=== PATIENT | female | born 1980 | race Caucasian/White ===

== ENCOUNTER 2018-09-19 11:49 | Emergency (ER) | payer BC ==
[~2018-09-19] VITALS: Ht 170.2 cm; Wt 85.3 kg
[2018-09-19 12:22] LABS: BASOPHILS % 0.2 % (0.0-1.0); EOSINOPHILS # (AUTO) 0.1 (0.0-0.4); EOSINOPHILS % 1.2 % (0.0-6.0); HEMATOCRIT 51.1 % (34.2-44.1); HEMOGLOBIN 17.2 g/dL (12.0-16.0); LYMPHOCYTES # (AUTO) 2.5 (1.0-3.2); LYMPHOCYTES % 26.8 % (18.0-39.1); MEAN CORPUSCULAR HEMOGLOBIN 29.5 pg (28-32); MEAN CORPUSCULAR HGB CONC 33.7 g/dL (31-35); MEAN CORPUSCULAR VOLUME 87.5 fL (81-99); MONOCYTES # (AUTO) 0.6 (0.2-0.8); MONOCYTES % 6.9 % (4.4-11.3); NEUTROPHILS % 64.5 % (38.7-80.0); PLATELET COUNT 252 x10e3/uL (140-360); RED BLOOD COUNT 5.84 x10e6/uL (3.6-5.1); RED CELL DISTRIBUTION WIDTH 12.5 % (11.7-14.4)
[2018-09-19 12:30] LABS: PARTIAL THROMBOPLASTIN TIME 32.1 seconds (23.8-35.5); PROTHROMBIN TIME 13.7 seconds (11.9-14.5)
[2018-09-19 12:43] LABS: ALANINE AMINOTRANSFERASE 20 IU/L (0-55); ALBUMIN 3.6 g/dL (3.5-5.0); ALBUMIN/GLOBULIN RATIO 0.9 (0.8-2.0); ALKALINE PHOSPHATASE 80 IU/L (40-150); ANION GAP 10.9 mmol/L (8-16); BLOOD UREA NITROGEN 13 mg/dL (7-26); BUN/CREATININE RATIO 18 (6-25); CALCIUM 9.2 mg/dL (8.4-10.2); CARBON DIOXIDE 25 mmol/L (22-29); CHLORIDE 107 mmol/L (98-107); CREATININE, SERUM 0.73 mg/dL (0.57-1.11); EST GLOMERULAR FILTRATION RATE > 60 ML/MIN (60-); GLUCOSE 103 mg/dL (74-118); POTASSIUM 3.9 mmol/L (3.5-5.1); SODIUM 139 mmol/L (136-145)
--- NOTE | 2018-09-19 13:08 | NUR ---
PT TO ROOM 6 FROM /S.
[2018-09-19 13:09] LABS: PREGNANCY TEST, URINE NEGATIVE (NEGATIVE)
[2018-09-19 13:17] LABS: BACTERIA,URINE MODERATE /HPF; CLARITY,URINE SL CLOUDY (CLEAR); COLOR,URINE YELLOW (YELLOW); EPITHELIAL CELLS,URINE MODERATE /LPF
[2018-09-19] MEDS ORDERED: ONDANSETRON HCL INJ 2MG/ML 2ML 2 MG/ML VIAL IV STA (13:19)
[2018-09-19] MEDS ORDERED: MORPHINE SULFATE INJ 4 MG/ML INJ 1ML IV STA (13:19)
[2018-09-19 13:21] LABS: BILIRUBIN,URINE NEGATIVE (NEGATIVE); KETONES,URINE NEGATIVE (NEGATIVE); LEUKOCYTE ESTERASE ,URINE NEGATIVE (NEGATIVE); NITRITE,URINE NEGATIVE (NEGATIVE); PROTEIN,URINE DIPSTICK NEGATIVE (NEGATIVE); URINE UROBILINOGEN 0.2 mg/dL (0.2 - 1); WBC,URINE (MAN) 0-5 /HPF (0-5)
--- NOTE | 2018-09-19 13:25 | NUR ---
PT MEDICATED WITH TRAMADOL 50 MG THAT WAS RX'D BY HER PCP, MARIA E BENNETT MADE AWARE. NO DISTRESS NOTED, BREATHING EVEN/UNLABORED, WILL CONTINUE TO MONITOR.
--- NOTE | 2018-09-19 13:28 | Diagnostic Imaging Report ---
EXAM: Gallbladder Ultrasound INDICATION: Abdominal pain. ^ABD PAIN ^Y COMPARISON: None. TECHNIQUE: Transverse and longitudinal images of the gallbladder were obtained. FINDINGS: Liver: Limited. The liver measures 14.4 cm in length. Gallbladder: Stones/Sludge: 1.0 cm echogenic lesion with posterior shadowing in the body of the gallbladder likely due to a gallstone. Wall: 0.4 cm Appearance: Slightly thickened gallbladder wall. No pericholecystic fluid or hydrops. Sonographic Campos's Sign: Negative Bile Ducts: Intrahepatic Ducts: No dilatation Extrahepatic Ducts: Common bile duct measures 0.3 cm, no dilatation Right kidney measures 12.0 cm in length. Right kidney unremarkable. Pancreas, inferior vena cava and abdominal aorta not well seen. Free Fluid: No ascites or pleural effusion IMPRESSION: 1.0 cm echogenic lesion with posterior shadowing in the body of the gallbladder likely due to a gallstone. Slightly thickened gallbladder wall. Limited study due to overlying bowel gas. Signed by: Dr. Naldo Townsend M.D. on 09/19/2018 1:24 PM
[2018-09-19] MEDS ORDERED: SODIUM CHLORIDE 0.9% 1000ML 1,000 ML IV SCH (13:30)
[2018-09-19 14:16] VITALS: BP 129/80
== END 2018-09-19 14:35 | disposition home or self-care (01) ==
LOC: ER 11:49
DX: K80.20 Calculus of gallbladder without cholecystitis without obstruction (principal); R10.11 Right upper quadrant pain
CPT/HCPCS: 36415; 76705; 80053; 81001; 81025; 85025; 85610; 85730; 99284; J2405; J7030